=== PATIENT | female | born 1965 | race African-American/Black ===

== ENCOUNTER 2016-06-11 11:06 | Day surgery (SDC) | payer BC ==
--- NOTE | ~2016-06-11 | EGD ---
EGD REPORT [facility] [address] [address] NAME: RO CESAR : [birth year] STATUS : REG [facility] [place] PAT#: [id number] AGE: 51 ADM/REG DATE : 06/11/16 MR#: [id number] REPORT SERV DATE: 06/11/16 DICTATED BY: DAYSI ERNANDEZ DATE: 06/11/16 REPORT STATUS : Draft [facility]ANS[facility]IBED BY: [facility] DATE: 06/11/16 Endoscopy Center Patient Name: Ro Cesar Date of : 1965 Attending MD: DAYSI ERNANDEZ MD Procedure Date No Time: 06/11/2016 Procedure: Upper GI endoscopy Indications: Epigastric abdominal pain, Dyspepsia, Esophageal reflux Referring MD: Anna Gibson Medicines: Monitored Anesthesia Care Complications: No immediate complications. Procedure: Pre-Anesthesia Assessment: - ASA Grade Assessment: III - A patient with severe systemic disease. After obtaining informed consent, the endoscope was passed under direct vision. Throughout the procedure, the patient's blood pressure, pulse, and oxygen saturations were monitored continuously. The GIF H190 [id number] was introduced through the mouth, and advanced to the second part of duodenum. The upper GI endoscopy was accomplished without difficulty. The patient tolerated the procedure well. Findings: The examined esophagus was normal. A small sliding hiatus hernia was present. Localized moderate inflammation characterized by congestion (edema), erosions and erythema was found in the gastric antrum. Biopsies were taken with a cold forceps for histology. The duodenal bulb and 2nd part of the duodenum were normal. The cardia and gastric fundus were normal on retroflexion. Impression: - Normal esophagus. - Hiatus hernia. - Gastritis. Biopsied. - Normal duodenal bulb and 2nd part of the duodenum. Recommendation: - Use Protonix (pantoprazole) 40 mg PO daily. - Await pathology results. - Follow an antireflux regimen. Procedure Code(s): --- Professional --- 48404, Esophagogastroduodenoscopy, flexible, transoral; with biopsy, single or multiple EGD REPORT [facility] [address] [place], [place] [address]. [address] NAME: RO CESAR : [birth year] STATUS : REG [place]#: [id number] AGE: 51 ADM/REG DATE : 06/11/16 MR#: [id number] REPORT SERV DATE: 06/11/16 DICTATED BY: DAYSI ERNANDEZ DATE: 06/11/16 REPORT STATUS : Draft TRANSCRIBED BY: [employer] DATE: 06/11/16 Diagnosis Code(s): --- Professional --- K44.9, Diaphragmatic hernia without obstruction or gangrene K29.70, Gastritis, unspecified, without bleeding R10.13, Epigastric pain K30, Functional dyspepsia K21.9, Gastro-esophageal reflux disease without esophagitis CPT copyright 2013 [employer]. All rights reserved. The codes documented in this report are preliminary and upon information coder review may be revised to meet current compliance requirements. DAYSI ERNANDEZ MD 06/11/2016 2:39 PM This report has been signed electronically. Number of Addenda: 0 Note Initiated On: 06/11/2016 1:30 PM Scope Withdrawal Time 0 hours 0 minutes 0 seconds [address] [facility] [place] [address]
--- NOTE | ~2016-06-11 | EGD ---
EGD REPORT [facility] [address] [address] NAME: RO ALMEIDA : [birth year] [place]US : [place] [facility] [place] PAT#: [id number] AGE: 51 ADM/REG DATE : 06/11/16 MR#: [id number] REPORT SERV DATE: 06/11/16 DICTATED BY: DAYSI ERNANDEZ DATE: 06/11/16 REPORT STATUS : Draft TRANSCRIBED BY: [employer] DATE: 06/11/16 Endoscopy Center Patient Name: Ro Almeida Date of : 1965 Attending MD: DAYSI ERNANDEZ MD Procedure Date No Time: 06/11/2016 Procedure: Colonoscopy Indications: Screening for colorectal malignant neoplasm Referring MD: Anna Gibson Medicines: Monitored Anesthesia Care Complications: No immediate complications. Procedure: Pre-Anesthesia Assessment: - ASA Grade Assessment: III - A patient with severe systemic disease. After I obtained informed consent, the scope was passed under direct vision. Throughout the procedure, the patient's blood pressure, pulse, and oxygen saturations were monitored continuously. The PCF [id number] was introduced through the anus and advanced to the terminal ileum, with identification of the appendiceal orifice and IC valve. The colonoscopy was performed without difficulty. The patient tolerated the procedure well. The quality of the bowel preparation was good. Findings: The digital rectal exam was normal. Pertinent negatives include no palpable rectal lesions. The terminal ileum appeared normal. The colon (entire examined portion) appeared normal. Hemorrhoids were found during retroflexion and were mild. Impression: - The examined portion of the ileum was normal. - The entire examined colon is normal. - Hemorrhoids. Recommendation: - Patient has a contact number available for emergencies. The signs and symptoms of potential delayed complications were discussed with the patient. Return to normal activities tomorrow. Written discharge instructions were provided to the patient. - Regular diet. - Continue present medications. - Repeat colonoscopy in 10 years for screening purposes. - Return to GI clinic PRN. EGD REPORT [facility] [address] [facility] [place]. [address] NAME: RO ALMEIDA : [birth year] STATUS : REG [facility]#: [id number] AGE: 51 ADM/REG DATE : 06/11/16 MR#: [id number] REPORT SERV DATE: 06/11/16 DICTATED BY: DAYSI ERNANDEZ DATE: 06/11/16 REPORT STATUS : Draft TRANSCRIBED BY: [employer] DATE: 06/11/16 Procedure Code(s): --- Professional --- 81322, Colonoscopy, flexible, proximal to splenic flexure; diagnostic, with or without collection of specimen(s) by brushing or washing, with or without colon decompression (separate procedure) Diagnosis Code(s): --- Professional --- K64.9, Unspecified hemorrhoids Z12.11, Encounter for screening for malignant neoplasm of colon CPT copyright 2013 [employer]. All rights reserved. The codes documented in this report are preliminary and upon research spec review may be revised to meet current compliance requirements. DAYSI ERNANDEZ MD 06/11/2016 2:59 PM This report has been signed electronically. Number of Addenda: 0 Note Initiated On: 06/11/2016 1:26 PM Scope Withdrawal Time 0 hours 11 minutes [address] [place] [address]
[~2016-06-11 11:06] MED LIST: CO Q PO; CO Q-10100 MG PO; FISH OIL OTC PO; FISH-EPA1000 MG PO; MULTI-VIT HP PO; MULTIVIT/MIN PO; PROTONIX PO
== END 2016-06-11 23:59 | disposition home or self-care (01) ==
LOC: DMU 11:06
PROVIDERS: Internal Medicine Gastroenterology
PROC: 0DJD8ZZ Inspection of Lower Intestinal Tract, Via Natural or Artificial Opening Endoscopic (ICD-10-PCS; principal; 2016-06-11 13:30)
PROC: 0DB68ZX Excision of Stomach, Via Natural or Artificial Opening Endoscopic, Diagnostic (ICD-10-PCS; 2016-06-11 13:30)
DX: Z12.11 Encounter for screening for malignant neoplasm of colon (principal); K64.9 Unspecified hemorrhoids; K44.9 Diaphragmatic hernia without obstruction or gangrene; K29.70 Gastritis, unspecified, without bleeding; I25.2 Old myocardial infarction; Z86.73 Personal history of transient ischemic attack (TIA), and cerebral infarction without residual deficits; Z88.5 Allergy status to narcotic agent; Z91.010 Allergy to peanuts; Z91.018 Allergy to other foods; Z88.8 Allergy status to other drugs, medicaments and biological substances; Z90.710 Acquired absence of both cervix and uterus; Z98.51 Tubal ligation status; Z90.81 Acquired absence of spleen; Z98.890 Other specified postprocedural states; Z79.899 Other long term (current) drug therapy
CPT/HCPCS: 88305